=== PATIENT | female | born 1975 | race Hispanic/Latino ===

== ENCOUNTER 2021-02-23 11:36 | Outpatient (CLI) | payer OTHER ==
[2021-02-23 15:11] LABS: Anion Gap 15 mmol/L (10-20); BUN (Urea Nitrogen) 12 mg/dL (7.0-18.7); Calc. Creatinine Clearance 0 mL/min (70-130); Calcium 9.5 mg/dL (7.8-10.44); Carbon Dioxide 22 mmol/L (22-29); Chloride 106 mmol/L (98-107); Glucose 84 mg/dL (70-105); Potassium 4.1 mmol/L (3.5-5.1); Sodium 139 mmol/L (136-145)
[2021-02-23 15:12] LABS: #Eosinphils 0.1 10x3/uL (0.0-0.5); #Monocytes 0.4 10x3/uL (0.0-1.1); #Neutrophils 2.9 10x3/uL (1.5-8.4); %Basophils 0.8 % (0.0-2.0); %Eosinophils 1.4 % (0.0-6.0); %Lymphocytes 32.7 % (18.0-47.0); %Monocytes 7.6 % (0.0-10.0); %Neutrophils 57.1 % (40.0-75.0); Hemoglobin 12.6 g/dL (12.0-15.5); Mean Corpuscular HGB CONC 32.3 g/dL (32.0-36.0); Mean Corpuscular Volume 96.1 fl (81.6-98.3); Mean Platelet Volume 9.9 fl (7.4-10.4); Platelet Count 354 10x3/uL (150-450); Red Blood Cell (RBC) Count 4.06 10x6/uL (3.90-5.03); White Blood Cell (WBC) Count 5.1 10x3/uL (3.5-10.5)
[2021-02-24 01:53] LABS: SARS-CoV-2 PCR by NAA Not Detected (NotDetected)
== END 2021-02-23 11:37 | disposition home or self-care (01) ==
LOC: LABBT 11:36
PROVIDERS: ATTEND Specialist
DX: Z01.812 Encounter for preprocedural laboratory examination (principal); C50.912 Malignant neoplasm of unspecified site of left female breast; R92.1 Mammographic calcification found on diagnostic imaging of breast; Z20.822 Contact with and (suspected) exposure to COVID-19
CPT/HCPCS: 80048; 85025; 87635; U0003; U0005

== ENCOUNTER 2021-02-28 07:40 | Day surgery (SDC) | payer OTHER ==
[2021-02-27 10:45] VITALS: BMI 28.3
[2021-02-28] MEDS ORDERED: Acetaminophen 500 MG TAB ONE (09:27)
[2021-02-28] MEDS ORDERED: Ketorolac Tromethamine 30 MG/ML VIAL ONE (09:27)
[2021-02-28] MEDS ORDERED: Isosulfan Blue 50 MG/5 ML VIAL ONE (14:20)
[2021-02-28] MEDS ORDERED: Lidocaine 1% w/Epinephrine 1:100K 20 ML VIAL ONE (14:20)
[2021-02-28] MEDS ORDERED: Bupivacaine 0.25% HCL 30 ML VIAL ONE (14:20)
[2021-02-28] MEDS ORDERED: Morphine 2 MG/ML VIAL ONE (14:30)
[2021-02-28] MEDS ORDERED: Fentanyl 100 MCG/2 ML VIAL ONE ×2 (14:30→15:38)
[2021-02-28] MEDS ORDERED: Lidocaine 1% PF 5 ML VIAL ONE (14:40)
[2021-02-28] MEDS ORDERED: Ondansetron PF 4 MG/2 ML Vial ONE (14:40)
[2021-02-28] MEDS ORDERED: Dexamethasone 20 MG/5 ML VIAL ONE (14:40)
[2021-02-28] MEDS ORDERED: PROPOFOL 200 MG/20 ML VIAL ONE (14:40)
[2021-02-28] MEDS ORDERED: HYDROcodone/Acetaminophen 5/325 mg Tablet ONE (17:50)
== END 2021-02-28 18:50 | disposition home or self-care (01) ==
LOC: SDC 07:40
PROVIDERS: ATTEND Specialist
PROC: 07B60ZX Excision of Left Axillary Lymphatic, Open Approach, Diagnostic (ICD-10-PCS; principal; 2021-02-28)
PROC: 0HTU0ZZ Resection of Left Breast, Open Approach (ICD-10-PCS; principal; 2021-02-28)
DX: C50.912 Malignant neoplasm of unspecified site of left female breast (principal); D24.2 Benign neoplasm of left breast; Z17.0 Estrogen receptor positive status [ER+]
CPT/HCPCS: 78195; 88307; 88331; 88332; 88334; 88342; A9541; J0690; J1100; J1885; J2270; J2405; J2704; J3010; Q9968; S0020

== ENCOUNTER 2022-05-20 09:07 | Emergency (ER) | payer SELFPAY ==
[2022-05-20] MEDS ORDERED: Dexamethasone 10 MG/ML VIAL ONE (09:34)
[2022-05-20] MEDS ORDERED: diphenhydrAMINE 25 MG CAP ONE (09:34)
[2022-05-20] MEDS ORDERED: Dexamethasone 4 mg/ml Vial ONE (09:35)
[2022-05-20] MEDS ORDERED: Famotidine 20 MG TAB ONE (09:38)
== END 2022-05-20 10:30 | disposition home or self-care (01) ==
LOC: ERS 09:07
DX: L50.0 Allergic urticaria (principal)
CPT/HCPCS: 96372; 99283; J1100